=== PATIENT | female | born 2000 | race Two or more races ===

== ENCOUNTER 2019-11-30 15:42 | Emergency (ER) | payer OTHER ==
[~2019-11-30] VITALS: Ht 160 cm; Wt 72.0 kg
[2019-11-30] MEDS ORDERED: IBUPROFEN 400MG TABLET PO ONE (19:45)
[2019-11-30 20:23] VITALS: BP 135/76
== END 2019-11-30 20:25 | disposition home or self-care (01) ==
LOC: ER 15:42
DX: J11.1 Influenza due to unidentified influenza virus with other respiratory manifestations (principal)
CPT/HCPCS: 99283

== ENCOUNTER 2019-12-22 21:23 | Emergency (ER) | payer OTHER ==
[~2019-12-22] VITALS: Ht 157.5 cm; Wt 73.0 kg
[2019-12-22] MEDS ORDERED: IBUPROFEN 600MG TABLET PO STA (23:31)
[2019-12-23 00:33] LABS: BASOPHILS % 0.4 % (0.0-2.0); EOSINOPHILS % 1.2 % (0.0-5.0); HEMATOCRIT. 38.2 % (36.0-48.0); HEMOGLOBIN. 12.6 g/dL (12.0-16.0); LYMPHOCYTES % 27.5 % (20.0-50.0); MEAN CORPUSCULAR HEMOGLOBIN 26.6 pg (28.0-32.0); MEAN CORPUSCULAR VOLUME 80.5 fL (81.0-99.0); MONOCYTES % 9.9 % (2.0-8.0); PLATELET 241 x1000/uL (130-400); RED BLOOD CELL COUNT 4.74 mill/uL (4.2-5.4); RED CELL DISTRIBUTION WIDTH 14.4 % (11.6-14.6)
[2019-12-23 00:36] LABS: CHLORIDE 109 mEq/L (98-107)
[2019-12-23 03:25] VITALS: BP 122/70
== END 2019-12-23 03:25 | disposition home or self-care (01) ==
LOC: ER 21:23
DX: R07.89 Other chest pain (principal)
CPT/HCPCS: 36415; 71045; 80053; 84484; 85025; 99285

== ENCOUNTER 2020-07-28 16:17 | Emergency (ER) | payer MEDICAID, OTHER ==
[~2020-07-28] VITALS: Ht 154.9 cm; Wt 75.0 kg
[2020-07-28] MEDS ORDERED: IBUPROFEN 600MG TABLET PO STA (18:05)
[2020-07-28] MEDS ORDERED: ONDANSETRON 4MG ODT PO ONE (18:15)
[2020-07-28 18:57] LABS: BASOPHILS % 0.5 % (0.0-2.0); EOSINOPHILS % 0.6 % (0.0-5.0); HEMATOCRIT. 38.5 % (36.0-48.0); HEMOGLOBIN. 12.8 g/dL (12.0-16.0); LYMPHOCYTES % 24.8 % (20.0-50.0); MEAN CORPUSCULAR HEMOGLOBIN 26.9 pg (28.0-32.0); MEAN CORPUSCULAR VOLUME 80.8 fL (81.0-99.0); MEAN PLATELET VOLUME 8.6 fl (7.4-10.4); MONOCYTES % 9.7 % (2.0-8.0); NEUTROPHILS % 64.4 % (40.0-76.0); PLATELET 255 x1000/uL (130-400); RED BLOOD CELL COUNT 4.77 mill/uL (4.2-5.4)
[2020-07-28 19:03] LABS: CHLORIDE 107 mEq/L (98-107)
[2020-07-28 19:10] LABS: HCG SCREEN NEGATIVE
[2020-07-28 19:22] LABS: CLARITY URINE CLOUDY (CLEAR); COLOR URINE YELLOW (YELLOW); KETONES URINE NEGATIVE (NEGATIVE); LEUKOCYTE ESTERASE URINE TRACE (NEGATIVE); NITRITE URINE NEGATIVE (NEGATIVE); OCCULT BLOOD URINE NEGATIVE (NEGATIVE); PH URINE 7.5 (4.5-8.0); PROTEIN URINE NEGATIVE (NEGATIVE); SPECIFIC GRAVITY URINE 1.022 (1.005-1.030)
[2020-07-28 20:18] VITALS: BP 118/73
== END 2020-07-28 20:19 | disposition home or self-care (01) ==
LOC: ER 16:17
DX: N39.0 Urinary tract infection, site not specified (principal); M54.9 Dorsalgia, unspecified
CPT/HCPCS: 36415; 76700; 80053; 81003; 81025; 83690; 84703; 85025; 93005; 99285; Q0162

== ENCOUNTER 2020-08-13 15:32 | Emergency (ER) | payer OTHER, MEDICAID ==
[~2020-08-13] VITALS: Ht 154.9 cm; Wt 66.0 kg
[2020-08-13] MEDS ORDERED: CLINDAMYCIN 900 MG in DEXTROSE 5% WATER 50 ML IV ONE (16:45)
[2020-08-13] MEDS ORDERED: SODIUM CHLORIDE 0.9% 1,000 ML IV ONE (16:45)
[2020-08-13] MEDS ORDERED: CLINDAMYCIN 900 MG PREMIX 50 ML IV NR (17:00)
[2020-08-13] MEDS ORDERED: ACETAMINOPHEN 325MG TABLET PO ONE (17:15)
[2020-08-13] MEDS ORDERED: IBUPROFEN 400MG TABLET PO ONE (20:00)
[2020-08-13 20:24] VITALS: BP 151/71
== END 2020-08-13 21:04 | disposition home or self-care (01) ==
LOC: ER 15:32
DX: K04.7 Periapical abscess without sinus (principal)
CPT/HCPCS: 81025; 93005; 96365; 99284; J3490; J7030; J7060